=== PATIENT | female | born 1980 | race Caucasian/White ===

== ENCOUNTER 2021-07-03 01:59 | Inpatient (IN) | payer BC ==
[~2021-07-03] VITALS: Ht 172.7 cm; Wt 136.1 kg
[2021-07-03 03:14] LABS: HEMOGLOBIN 14.8 gm/dl (12.3-15.3); RED BLOOD COUNT 4.86 M/UL (4.00-5.10); WHITE BLOOD COUNT 5.3 K/UL (4.5-11.0)
[2021-07-03 03:37] LABS: BUN/CREATININE RATIO 15 (0-10)
[2021-07-03] MEDS ORDERED: PROVENTIL HFA6.7 GM INH (09:13)
[2021-07-03] MEDS ORDERED: SYNTHROID 150150 MCG PO (09:13)
[2021-07-03] MEDS ORDERED: ALEVE220 MG PO (09:49)
[2021-07-03] MEDS ORDERED: NYQUIL PO (09:50)
[2021-07-04 10:18] LABS: HEMOGLOBIN 15.1 gm/dl (12.3-15.3); RED BLOOD COUNT 4.93 M/UL (4.00-5.10); WHITE BLOOD COUNT 10.3 K/UL (4.5-11.0)
[2021-07-05 06:44] LABS: HEMOGLOBIN 15.1 gm/dl (12.3-15.3); RED BLOOD COUNT 4.91 M/UL (4.00-5.10); WHITE BLOOD COUNT 8.5 K/UL (4.5-11.0)
[2021-07-06 05:28] LABS: RED BLOOD COUNT 4.6 M/UL (4.00-5.10); WHITE BLOOD COUNT 7.1 K/UL (4.5-11.0)
--- NOTE | 2021-07-06 21:42 | NUR ---
1830 pt to be transferred to PCU for need of bipap first time. Called house for a bed. While awaiting bed pt was maxed out on airvo, sats dropped to 84. Dr. Gordon stated to go ahead and get the bipap on her. Called respiratory. Pt will be transferred to PCU 610. Night meds given and charting complete. pt stablized on bipap. Called report and transferred pt at 2125.
[2021-07-07 03:50] LABS: HEMOGLOBIN 14.1 gm/dl (12.3-15.3); RED BLOOD COUNT 4.67 M/UL (4.00-5.10); WHITE BLOOD COUNT 6.8 K/UL (4.5-11.0)
[2021-07-07 04:09] LABS: BUN/CREATININE RATIO 27 (0-10)
--- NOTE | 2021-07-07 14:31 | NUR ---
18g x 10cm midline placed in the left basilic vein, using ultrasound guidance. Aspirates and flushes easily.
[2021-07-08 03:29] LABS: HEMOGLOBIN 14.5 gm/dl (12.3-15.3); RED BLOOD COUNT 4.75 M/UL (4.00-5.10)
[2021-07-08 03:30] LABS: WHITE BLOOD COUNT 12.1 K/UL (4.5-11.0)
[2021-07-08 03:48] LABS: BUN/CREATININE RATIO 27 (0-10)
--- NOTE | 2021-07-08 17:56 | NUR ---
REPORT GIVEN TO BE DANIELSON RN
[2021-07-09 05:32] LABS: HEMOGLOBIN 14.6 gm/dl (12.3-15.3); RED BLOOD COUNT 5.01 M/UL (4.00-5.10)
[2021-07-09 05:36] LABS: WHITE BLOOD COUNT 17.1 K/UL (4.5-11.0)
[2021-07-09 05:55] LABS: BUN/CREATININE RATIO 26 (0-10)
[2021-07-10 05:22] LABS: HEMOGLOBIN 13.6 gm/dl (12.3-15.3); RED BLOOD COUNT 4.51 M/UL (4.00-5.10); WHITE BLOOD COUNT 16.5 K/UL (4.5-11.0)
[2021-07-10 05:44] LABS: BUN/CREATININE RATIO 26 (0-10)
[2021-07-11 05:43] LABS: HEMOGLOBIN 12.7 gm/dl (12.3-15.3); RED BLOOD COUNT 4.31 M/UL (4.00-5.10); WHITE BLOOD COUNT 15.3 K/UL (4.5-11.0)
[2021-07-11 06:11] LABS: BUN/CREATININE RATIO 22 (0-10)
[2021-07-12 05:28] LABS: HEMOGLOBIN 12.3 gm/dl (12.3-15.3); RED BLOOD COUNT 4.15 M/UL (4.00-5.10); WHITE BLOOD COUNT 16.5 K/UL (4.5-11.0)
[2021-07-12 05:52] LABS: BUN/CREATININE RATIO 32 (0-10)
[2021-07-13 05:01] LABS: RED BLOOD COUNT 4.15 M/UL (4.00-5.10); WHITE BLOOD COUNT 17.7 K/UL (4.5-11.0)
[2021-07-13 05:27] LABS: BUN/CREATININE RATIO 37 (0-10)
[2021-07-14 05:46] LABS: HEMOGLOBIN 11.9 gm/dl (12.3-15.3); RED BLOOD COUNT 4.07 M/UL (4.00-5.10); WHITE BLOOD COUNT 18.1 K/UL (4.5-11.0)
[2021-07-14 06:29] LABS: BUN/CREATININE RATIO 44 (0-10)
[2021-07-15 05:50] LABS: HEMOGLOBIN 12.1 gm/dl (12.3-15.3); RED BLOOD COUNT 4.05 M/UL (4.00-5.10); WHITE BLOOD COUNT 15.2 K/UL (4.5-11.0)
[2021-07-15 06:38] LABS: BUN/CREATININE RATIO 47 (0-10)
[2021-07-16 11:03] LABS: HEMOGLOBIN 12.8 gm/dl (12.3-15.3); RED BLOOD COUNT 4.3 M/UL (4.00-5.10)
[2021-07-16 11:24] LABS: WHITE BLOOD COUNT 26.1 K/UL (4.5-11.0)
[2021-07-16 11:26] LABS: BUN/CREATININE RATIO 44 (0-10)
[2021-07-17 05:29] LABS: HEMOGLOBIN 12.6 gm/dl (12.3-15.3); RED BLOOD COUNT 4.18 M/UL (4.00-5.10); WHITE BLOOD COUNT 19.7 K/UL (4.5-11.0)
[2021-07-17 05:49] LABS: BUN/CREATININE RATIO 38 (0-10)
[2021-07-18 09:07] LABS: HEMOGLOBIN 11.2 gm/dl (12.3-15.3); RED BLOOD COUNT 3.78 M/UL (4.00-5.10)
[2021-07-18 09:08] LABS: WHITE BLOOD COUNT 12.9 K/UL (4.5-11.0)
[2021-07-18 09:32] LABS: BUN/CREATININE RATIO 49 (0-10)
[2021-07-19 05:34] LABS: HEMOGLOBIN 11.8 gm/dl (12.3-15.3); RED BLOOD COUNT 3.98 M/UL (4.00-5.10); WHITE BLOOD COUNT 12.6 K/UL (4.5-11.0)
[2021-07-19 06:01] LABS: BUN/CREATININE RATIO 44 (0-10)
[2021-07-20 07:53] LABS: HEMOGLOBIN 11.6 gm/dl (12.3-15.3); RED BLOOD COUNT 3.89 M/UL (4.00-5.10); WHITE BLOOD COUNT 11.1 K/UL (4.5-11.0)
[2021-07-20 08:29] LABS: BUN/CREATININE RATIO 43 (0-10)
[2021-07-21 09:29] LABS: HEMOGLOBIN 11.1 gm/dl (12.3-15.3); RED BLOOD COUNT 3.76 M/UL (4.00-5.10)
[2021-07-21 09:33] LABS: WHITE BLOOD COUNT 8.3 K/UL (4.5-11.0)
[2021-07-21 09:52] LABS: BUN/CREATININE RATIO 39 (0-10)
[2021-07-22 09:16] LABS: HEMOGLOBIN 12.5 gm/dl (12.3-15.3); RED BLOOD COUNT 4.07 M/UL (4.00-5.10)
[2021-07-22 09:17] LABS: WHITE BLOOD COUNT 12.2 K/UL (4.5-11.0)
[2021-07-22 10:12] LABS: BUN/CREATININE RATIO 37 (0-10)
[2021-07-23 11:53] LABS: BUN/CREATININE RATIO 42 (0-10)
[2021-07-24 05:40] LABS: HEMOGLOBIN 13.7 gm/dl (12.3-15.3); WHITE BLOOD COUNT 14.6 K/UL (4.5-11.0)
[2021-07-24 05:41] LABS: RED BLOOD COUNT 4.56 M/UL (4.00-5.10)
[2021-07-24 06:08] LABS: BUN/CREATININE RATIO 41 (0-10)
[2021-07-25 06:22] LABS: BUN/CREATININE RATIO 44 (0-10)
[2021-07-25 12:09] LABS: HEMOGLOBIN 12.5 gm/dl (12.3-15.3); WHITE BLOOD COUNT 13.1 K/UL (4.5-11.0)
[2021-07-26 05:50] LABS: RED BLOOD COUNT 3.88 M/UL (4.00-5.10); WHITE BLOOD COUNT 15.3 K/UL (4.5-11.0)
[2021-07-26 06:13] LABS: BUN/CREATININE RATIO 30 (0-10)
[2021-07-27 05:06] LABS: BUN/CREATININE RATIO 28 (0-10)
[2021-07-27 07:37] LABS: HEMOGLOBIN 10.8 gm/dl (12.3-15.3); RED BLOOD COUNT 3.62 M/UL (4.00-5.10); WHITE BLOOD COUNT 10.8 K/UL (4.5-11.0)
[2021-07-28 05:00] LABS: HEMOGLOBIN 10.5 gm/dl (12.3-15.3); RED BLOOD COUNT 3.47 M/UL (4.00-5.10); WHITE BLOOD COUNT 9.3 K/UL (4.5-11.0)
[2021-07-28 05:21] LABS: BUN/CREATININE RATIO 30 (0-10)
[2021-07-29 05:29] LABS: HEMOGLOBIN 9.9 gm/dl (12.3-15.3); RED BLOOD COUNT 3.29 M/UL (4.00-5.10); WHITE BLOOD COUNT 8.7 K/UL (4.5-11.0)
[2021-07-29 05:51] LABS: BUN/CREATININE RATIO 23 (0-10)
[2021-07-30 07:27] LABS: HEMOGLOBIN 10.2 gm/dl (12.3-15.3); RED BLOOD COUNT 3.37 M/UL (4.00-5.10); WHITE BLOOD COUNT 9.4 K/UL (4.5-11.0)
[2021-07-30 07:46] LABS: BUN/CREATININE RATIO 32 (0-10)
[2021-07-31 09:10] LABS: HEMOGLOBIN 10.3 gm/dl (12.3-15.3); RED BLOOD COUNT 3.42 M/UL (4.00-5.10)
[2021-07-31 09:33] LABS: BUN/CREATININE RATIO 22 (0-10)
[2021-08-01 05:24] LABS: HEMOGLOBIN 9.8 gm/dl (12.3-15.3); RED BLOOD COUNT 3.24 M/UL (4.00-5.10); WHITE BLOOD COUNT 8.8 K/UL (4.5-11.0)
[2021-08-01 05:49] LABS: BUN/CREATININE RATIO 34 (0-10)
[2021-08-02 05:12] LABS: HEMOGLOBIN 10.9 gm/dl (12.3-15.3)
[2021-08-02 05:15] LABS: RED BLOOD COUNT 3.64 M/UL (4.00-5.10); WHITE BLOOD COUNT 11.7 K/UL (4.5-11.0)
[2021-08-02 05:26] LABS: BUN/CREATININE RATIO 28 (0-10)
[2021-08-03 15:09] LABS: HEMOGLOBIN 11.1 gm/dl (12.3-15.3); RED BLOOD COUNT 3.65 M/UL (4.00-5.10)
[2021-08-03 15:13] LABS: WHITE BLOOD COUNT 15.5 K/UL (4.5-11.0)
[2021-08-03 15:34] LABS: BUN/CREATININE RATIO 20 (0-10)
[2021-08-04 08:24] LABS: HEMOGLOBIN 11.8 gm/dl (12.3-15.3); RED BLOOD COUNT 3.94 M/UL (4.00-5.10)
[2021-08-04 08:46] LABS: BUN/CREATININE RATIO 9 (0-10)
[2021-08-05 11:09] LABS: WHITE BLOOD COUNT 14.7 K/UL (4.5-11.0)
[2021-08-05 11:10] LABS: HEMOGLOBIN 9.8 gm/dl (12.3-15.3)
[2021-08-05 11:46] LABS: BUN/CREATININE RATIO 14 (0-10)
[2021-08-06 04:46] LABS: HEMOGLOBIN 9.9 gm/dl (12.3-15.3); RED BLOOD COUNT 3.39 M/UL (4.00-5.10); WHITE BLOOD COUNT 12.6 K/UL (4.5-11.0)
[2021-08-06 05:03] LABS: BUN/CREATININE RATIO 17 (0-10)
[2021-08-07 06:29] LABS: HEMOGLOBIN 9.7 gm/dl (12.3-15.3); RED BLOOD COUNT 3.27 M/UL (4.00-5.10); WHITE BLOOD COUNT 13.2 K/UL (4.5-11.0)
[2021-08-07 07:32] LABS: BUN/CREATININE RATIO 16 (0-10)
[2021-08-08 06:22] LABS: HEMOGLOBIN 9.7 gm/dl (12.3-15.3); RED BLOOD COUNT 3.27 M/UL (4.00-5.10); WHITE BLOOD COUNT 14.5 K/UL (4.5-11.0)
[2021-08-08 07:31] LABS: BUN/CREATININE RATIO 12 (0-10)
[2021-08-09 05:22] LABS: HEMOGLOBIN 8.9 gm/dl (12.3-15.3); RED BLOOD COUNT 3.03 M/UL (4.00-5.10); WHITE BLOOD COUNT 13.1 K/UL (4.5-11.0)
[2021-08-10 08:08] LABS: HEMOGLOBIN 8.9 gm/dl (12.3-15.3); RED BLOOD COUNT 3.01 M/UL (4.00-5.10)
[2021-08-10 08:15] LABS: WHITE BLOOD COUNT 25.1 K/UL (4.5-11.0)
== END 2021-08-10 11:05 | disposition expired | DRG 870 ==
LOC: ER1 01:59 → M/S 03:31 → CCU 03:31 → PROG CARE 03:31 → CDU 03:31 → M/S 14:14 → PROG CARE 07-06 20:26 → CCU 07-08 18:24
PROVIDERS: Internal Medicine; Internal Medicine Pulmonary Disease; Physician Assistant; Surgery; ADMIT Internal Medicine
PROC: 8E0ZXY6 Isolation (ICD-10-PCS; principal; 2021-07-03)
PROC: XW033E5 Introduction of Remdesivir Anti-infective into Peripheral Vein, Percutaneous Approach, New Technology Group 5 (ICD-10-PCS; 2021-07-03)
PROC: 3E0333Z Introduction of Anti-inflammatory into Peripheral Vein, Percutaneous Approach (ICD-10-PCS; 2021-07-03)
PROC: XW033G5 Introduction of Sarilumab into Peripheral Vein, Percutaneous Approach, New Technology Group 5 (ICD-10-PCS; 2021-07-03)
PROC: 5A09557 Assistance with Respiratory Ventilation, Greater than 96 Consecutive Hours, Continuous Positive Airway Pressure (ICD-10-PCS; 2021-07-03)
PROC: 5A1955Z Respiratory Ventilation, Greater than 96 Consecutive Hours (ICD-10-PCS; 2021-07-09)
PROC: 0BH18EZ Insertion of Endotracheal Airway into Trachea, Via Natural or Artificial Opening Endoscopic (ICD-10-PCS; 2021-07-09)
PROC: 02HV33Z Insertion of Infusion Device into Superior Vena Cava, Percutaneous Approach (ICD-10-PCS; 2021-07-10)
PROC: 3E0336Z Introduction of Nutritional Substance into Peripheral Vein, Percutaneous Approach (ICD-10-PCS; 2021-07-10)
PROC: 0DH63UZ Insertion of Feeding Device into Stomach, Percutaneous Approach (ICD-10-PCS; 2021-07-10)
PROC: 0B9F8ZX Drainage of Right Lower Lung Lobe, Via Natural or Artificial Opening Endoscopic, Diagnostic (ICD-10-PCS; 2021-07-21)
DX: A41.89 Other specified sepsis (principal); U07.1 COVID-19; J12.82 Pneumonia due to coronavirus disease 2019; R65.21 Severe sepsis with septic shock; J80 Acute respiratory distress syndrome; J15.9 Unspecified bacterial pneumonia; N17.9 Acute kidney failure, unspecified; Z68.42 Body mass index [BMI] 45.0-49.9, adult; E87.6 Hypokalemia; A41.52 Sepsis due to Pseudomonas; E03.9 Hypothyroidism, unspecified; E66.01 Morbid (severe) obesity due to excess calories; Z66 Do not resuscitate; K21.9 Gastro-esophageal reflux disease without esophagitis; E11.65 Type 2 diabetes mellitus with hyperglycemia; D53.1 Other megaloblastic anemias, not elsewhere classified; E05.90 Thyrotoxicosis, unspecified without thyrotoxic crisis or storm; R74.01 Elevation of levels of liver transaminase levels; Z90.49 Acquired absence of other specified parts of digestive tract; Z90.710 Acquired absence of both cervix and uterus; Z88.2 Allergy status to sulfonamides; Z88.8 Allergy status to other drugs, medicaments and biological substances; Z98.890 Other specified postprocedural states; Z82.49 Family history of ischemic heart disease and other diseases of the circulatory system; Z79.4 Long term (current) use of insulin; Z91.19 Patient's noncompliance with other medical treatment and regimen; Z51.5 Encounter for palliative care
CPT/HCPCS: ECHO; 31500; 36415; 36600; 70450; 71045; 74018; 80048; 80053; 80202; 81001; 82550; 82553; 82728; 82803; 82962; 83036; 83605; 83615; 83735; 83874; 83880; 84100; 84132; 84484; 85007; 85025; 85027; 85379; 85384; 85610; 86140; 87040; 87070; 87077; 87081; 87086; 87186; 87205; 87206; 87449; 92610; 93005; 93306; 93970; 94002; 94003; 94640; 94660; 94664; 94760; 97161; 97530; 99285; A6212; C1751; J0330; J0456; J0696; J0713; J1100; J1650; J1940; J1956; J2020; J2060; J2185; J2248; J2250; J2543; J2704; J3010; J3370; J3411; J3480; J7030; J7040; J7050; J7070; P9047; Q9967; U0002